=== PATIENT | female | born 1975 | race African-American/Black ===

== ENCOUNTER 2019-09-01 12:24 | Emergency (ER) | payer MEDICAID ==
[~2019-09-01] VITALS: Ht 157.5 cm; Wt 98.0 kg
--- NOTE | 2019-09-01 12:35 | NUR ---
ED Nurse Note: Patient walked in to ER c/o left arm pain 10/10. Stated may be hit it, but did not remember. Pt is AOx4, VSS, on RA. Placed on bed.
--- NOTE | 2019-09-01 13:00 | NUR ---
ED Nurse Note: X-ray at bedside.
[2019-09-01 13:02] VITALS: BP 160/93
--- NOTE | 2019-09-01 13:42 | Diagnostic Imaging Report ---
Indications:Severe elbow pain Technique: Three or 4 views of the left elbow Comparison: None Findings: There is calcification is adjacent to the lateral epicondyles. This may be dystrophic from prior injury. No evidence of acute fracture. No joint effusion. No dislocations. Impression: No acute process. Findings as noted
[2019-09-01] MEDS ORDERED: ROBAXIN-500MG ORAL (13:58)
[2019-09-01] MEDS ORDERED: IBUPROFEN600 MG ORAL (13:58)
--- NOTE | 2019-09-01 13:58 | Emergency Room Report ---
History of Present Illness General Chief Complaint: Upper Extremity Injury Present Illness HPI 43-year-old female with no single hospital history here complaining of left elbow pain x3 days. Patient does not recall whether she hurt or injured herself or not however complains of a 10/10 pain and reports that she woke up with the pain today. Patient appears to be under the influence of this stimulant. Screams when I barely even touch the elbow. No bony tenderness noted, denies any pain radiation, tingling and numbness. Denies all other injuries, loss of consciousness, fever and chills, recent travel. Denies at this time. COVID-19 risk:Travel to affect: No Has patient experienced florez: No Allergies: Coded Allergies: MORPHINE (Verified Allergy, Unknown, 09/01/19) Patient History Past Medical History: see triage record Past Surgical History: none Pertinent Family History: none Last Menstrual Period: 08/28/2019 Now: No Immunizations: UTD Reviewed Nursing Documentation: PMH: Agreed; PSxH: Agreed Review of Systems All Other Systems: negative except mentioned in HPI Physical Exam Vital Signs Date Time Temp Pulse Resp B/P (MAP) Pulse Ox O2 Delivery O2 Flow Rate FiO2 09/01/19 12:32 98.2 77 18 160/93 (115) 98 Room Air Sp02 EP Interpretation: reviewed, normal General Appearance: no apparent distress, alert, GCS 15, non-toxic Head: normocephalic, atraumatic Eyes: bilateral eye normal inspection, bilateral eye PERRL ENT: hearing grossly normal, normal pharynx, no angioedema, normal voice Neck: full range of motion, no meningismus, supple/symm/no masses Respiratory: chest non-tender, lungs clear, normal breath sounds, no rhonchi, no wheezing, speaking full sentences Cardiovascular #1: regular rate, rhythm, no edema, no murmur, normal capillary refill Cardiovascular #2: 2+ radial (R), 2+ radial (L) Gastrointestinal: normal bowel sounds, non tender, soft, non-distended, no guarding, no rebound Rectal: deferred Genitourinary: no CVA tenderness Musculoskeletal: back normal, normal range of motion, non-tender, other - No impingement sign noted Neurologic: alert, motor strength/tone normal, oriented x3, sensory intact, responsive, speech normal Psychiatric: judgement/insight normal, memory normal, mood/affect normal, no suicidal/homicidal ideation Skin: no rash Lymphatic: no adenopathy Procedures Splinting Splinting : Consent: Verbal Location: Left elbow Pre-Made Type: Sling Pre-Proc Neuro Vasc Exam: normal Post-Proc Neuro Vasc Exam: normal Patient Tolerated: Well Complications: None Medical Decision Making PA Attestation All my diagnosis and treatment plans were reviewed ad discussed with my supervising physician Dr. Lewis Diagnostic Impression: Primary Impression: Elbow contusion ER Course 43-year-old female with no single hospital history here complaining of left elbow pain x3 days. Patient does not recall whether she hurt or injured herself or not however complains of a 10/10 pain and reports that she woke up with the pain today. Patient appears to be under the influence of this stimulant. Screams when I barely even touch the elbow. No bony tenderness noted, denies any pain radiation, tingling and numbness. Denies all other injuries, loss of consciousness, fever and chills, recent travel. Denies at this time. Ddx considered but are not limited to : Elbow contusion versus fracture versus sprain versus strain Vital signs: are WNL, pt. is afebrile H&PE are most consistent with: Elbow contusion ORDERS: Elbow x-ray, [facility] ED INTERVENTIONS: Tylenol DISCHARGE: At this time pt. is stable for d/c to home. Will provide printed patient care instructions, and any necessary prescriptions. Care plan and follow up instructions have been discussed with the patient prior to discharge. Patient keeps insisting that she definitely has a fracture even though the radiologist report states that there is no fracture, patient keeps being demanding, patient keeps threatening that she wants to know if there is a fracture. Patient was explained that she needs to follow-up further with primary care doctor. Other X-Ray Diagnostic Results Other X-Ray Diagnostic Results : X-Ray ordered: Elbow # of Views/Limited Vs Complete: 3 View Indication: Pain EP Interpretation: Yes PA Xray: Interpretation reviewed, by supervising MD, and agrees with findings. Interpretation: no dislocation, no soft tissue swelling, no fractures Impression: No acute disease Electronically Signed by: Walker Brunner PA-C Last Vital Signs Date Time Temp Pulse Resp B/P (MAP) Pulse Ox O2 Delivery O2 Flow Rate FiO2 09/01/19 13:02 98.2 18 160/93 98 Room Air 09/01/19 12:32 77 Disposition: HOME, SELF-CARE Condition: Stable Scripts Methocarbamol* (ROBAXIN-500*) 500 Mg Tablet 500 MG ORAL TID PRN for For Pain, #15 TAB 0 Refills Prov: Walker Rebollar 09/01/19 Ibuprofen* (MOTRIN*) 600 Mg Tablet 600 MG ORAL Q8H PRN for For Pain, #30 TAB 0 Refills Prov: Walker Rebollar 09/01/19 Referrals: [facility]ERR[facility] (PCP) Patient Instructions: Elbow Bursitis, [id number] Additional Instructions: Take medication as directed, follow-up primary care provider, if worsening symptoms return to emergency room Walker Rebollar Sep 01, 2019 13:58
[2019-09-01 14:10] VITALS: BP 158/90
--- NOTE | 2019-09-01 14:10 | NUR ---
ER DISCHARGE NOTE: Patient is cleared to be discharged per ERPA, pt is aox4, on room air, with stable vital signs. pt was given dc and prescription instructions, pt was able to verbalize understanding, pt id band removed. pt is able to ambulate with steady gait. pt took all belongings.
== END 2019-09-01 14:10 | disposition home or self-care (01) ==
LOC: EMR 13:30
DX: S50.02XA Contusion of left elbow, initial encounter (principal); X58.XXXA Exposure to other specified factors, initial encounter; Y92.9 Unspecified place or not applicable; Z88.6 Allergy status to analgesic agent
CPT/HCPCS: 73080; Z7502; 99283